=== PATIENT | female | born 1955 | race Caucasian/White ===

== ENCOUNTER → 2018-02-03 | Outpatient (CLI) | payer BC, OTHER ==
[~2018-02-03] MED LIST: ATOR20TA9 PO; MELO7.5T31 PO; METH479P PO
[2018-02-03 15:00] LABS: BASOPHILS # (AUTO) 0.02 x10^3/uL (0-0.1); BASOPHILS % (AUTO) 0 % (0-1); EOSINOPHILS # (AUTO) 0.23 x10^3/uL (0-0.4); EOSINOPHILS % (AUTO) 3 % (1-7); LYMPHOCYTES % (AUTO) 22 % (22-44); MD NO; MEAN CORPUSCULAR HEMOGLOBIN 30.8 pg (27.0-34.8); MEAN CORPUSCULAR HGB CONC 34.1 g/dL (32.4-35.8); MEAN CORPUSCULAR VOLUME 90.4 fL (80-100); MEAN PLATELET VOLUME 7.5 fL (7.4-10.4); MONOCYTES # (AUTO) 0.47 x10^3/uL (0.2-0.8); MONOCYTES % (AUTO) 7 % (2-9); NEUTROPHILS # (AUTO) 4.85 x10^3/uL (1.8-6.8); NEUTROPHILS % (AUTO) 68 % (42-75); PLATELET COUNT 247 x10^3/uL (130-400); RED BLOOD COUNT 5.05 x10^6/uL (3.82-5.3); RED CELL DISTRIBUTION WIDTH 14.3 % (9.6-15.2)
[2018-02-03 15:03] LABS: MICROSCOPIC NOT IND
[2018-02-03 15:11] LABS: ANION GAP 6 mmol/L (5-15); CALCIUM 8.9 mg/dL (8.5-10.1); CHLORIDE 110 mmol/L (98-107); CREATININE 0.96 mg/dL (0.55-1.02)
[2018-02-03 15:16] LABS: CULTURE INDICATED? NO
== END | disposition home or self-care (01) ==
LOC: STAR 13:54
PROVIDERS: ATTEND Orthopaedic Surgery Adult Reconstructive Orthopaedic Surgery
DX: Z01.818 Encounter for other preprocedural examination (principal); M17.12 Unilateral primary osteoarthritis, left knee
CPT/HCPCS: 36415; 80048; 81003; 85025; 87081; 87147; 93005

== ENCOUNTER 2018-02-16 05:43 | Inpatient (IN) | payer BC ==
[~2018-02-16] VITALS: Ht 160 cm; Wt 74.4 kg
[2018-02-16] MEDS ORDERED: LACTATED RINGERS 1,000 ML IV SCH (06:06)
[2018-02-16] MEDS ORDERED: NEOSPORIN OINT, 15GM ONE (06:08)
[2018-02-16] MEDS ORDERED: TRANEXAMIC ACID 100 MG/ML, 10ML ONE ×2 (06:08→07:52)
[2018-02-16] MEDS ORDERED: BUPIVACAINE/PF 0.5% ONE (06:08)
[2018-02-16] MEDS ORDERED: ALBUTEROL/IPRATROPIUM 2.5MG/0.5MG, 3 ML NPPB PRN (06:30)
[2018-02-16] MEDS ORDERED: DIAZEPAM 5 MG/ML, 2ML IVPush PRN (06:30)
[2018-02-16] MEDS ORDERED: SCOPOLAMINE PATCH, 1.5MG PATCH.TD72 TD ONE (06:30)
[2018-02-16] MEDS ORDERED: PROMETHAZINE 25 MG/ML, 1ML IV PRN (06:30)
[2018-02-16] MEDS ORDERED: ONDANSETRON ODT 8 MG PO ONE (06:30)
[2018-02-16] MEDS ORDERED: DIPHENHYDRAMINE 50 MG/ML, 1ML IVPush PRN (06:30)
[2018-02-16] MEDS ORDERED: SCOPOLAMINE PATCH, 1.5MG PATCH.TD72 TD PRN (06:30)
[2018-02-16] MEDS ORDERED: EPHEDRINE 50 MG/ML, 1ML IM PRN (06:30)
[2018-02-16] MEDS ORDERED: VANCOMYCIN PER PHARMACY MC PRN (06:30)
[2018-02-16] MEDS ORDERED: OxyconTIN ER 20 MG TAB.ER PO ONE (06:30)
[2018-02-16] MEDS ORDERED: GABAPENTIN 300 MG CAPSULE PO ONE (06:30)
[2018-02-16] MEDS ORDERED: ACETAMINOPHEN 500 MG TABLET PO ONE (06:30)
[2018-02-16] MEDS ORDERED: VANCOMYCIN 1,100 MG in SODIUM CHLORIDE 0.9% 250 ML IV ONE (06:30)
[2018-02-16] MEDS ORDERED: HYDROmorphone 1 MG/ML, 1ML IV PRN (06:30)
[2018-02-16] MEDS ORDERED: PROMETHAZINE 25 MG/ML, 1ML IM PRN ×2 (06:30→11:30)
[2018-02-16] MEDS ORDERED: MIDAZOLAM 1 MG/ML, 2ML IV PRN (06:30)
[2018-02-16] MEDS ORDERED: hydrALAzine 20 MG/ML, 1ML IV PRN (06:30)
[2018-02-16] MEDS ORDERED: MEPERIDINE/PF 25MG/0.5ML IVPush PRN (06:30)
[2018-02-16] MEDS ORDERED: FENTANYL PF 100 MCG/2ML IV PRN (06:30)
[2018-02-16] MEDS ORDERED: OXYcodone 5 MG/5 ML ORAL.SOL UDC PO PRN (06:30)
[2018-02-16] MEDS ORDERED: LABETALOL 5MG/ML, 20ML IV PRN (06:30)
[2018-02-16] MEDS ORDERED: MIDAZOLAM 1 MG/ML, 2ML ONE (06:34)
[2018-02-16] MEDS ORDERED: FENTANYL PF 250 MCG/5ML ONE (06:35)
[2018-02-16] MEDS ORDERED: OxyconTIN ER 20 MG TAB.ER ONE (06:39)
[2018-02-16] MEDS ORDERED: ACETAMINOPHEN 500 MG TABLET ONE (06:40)
[2018-02-16] MEDS ORDERED: GABAPENTIN 300 MG CAPSULE ONE (06:40)
[2018-02-16] MEDS ORDERED: ONDANSETRON ODT 8 MG ONE (06:40)
[2018-02-16] MEDS ORDERED: PROPOFOL 50 ML ONE (07:05)
[2018-02-16] MEDS ORDERED: PROPOFOL 10 MG/ML, 20ML ONE (07:23)
[2018-02-16] MEDS ORDERED: BUPIVACAINE/PF 0.25% ONE (07:23)
[2018-02-16] MEDS ORDERED: DEXAMETHASONE 4 MG/ML, 1ML ONE (07:23)
[2018-02-16] MEDS ORDERED: ONDANSETRON 2MG/ML, 2ML ONE (07:23)
[2018-02-16] MEDS ORDERED: CEFAZOLIN 1,000 MG ONE (07:23)
[2018-02-16] MEDS ORDERED: MEPERIDINE/PF 25MG/0.5ML ONE (09:04)
[2018-02-16] MEDS ORDERED: FENTANYL PF 100 MCG/2ML ONE (09:04)
[2018-02-16] MEDS ORDERED: OXYcodone 5 MG/5 ML ORAL.SOL UDC ONE (09:05)
[2018-02-16 10:25] VITALS: BP 114/71
[2018-02-16] MEDS ORDERED: SCOPOLAMINE PATCH, 1.5MG PATCH.TD72 TD SCH (11:30)
[2018-02-16] MEDS ORDERED: OXYcodone IR 5MG TABLET PO PRN (11:30)
[2018-02-16] MEDS ORDERED: BISACODYL 10 MG SUPP PR PRN (11:30)
[2018-02-16] MEDS ORDERED: SENNA/DOCUSATE TABLET PO PRN (11:30)
[2018-02-16] MEDS ORDERED: DIAZEPAM 5 MG TABLET PO PRN (11:30)
[2018-02-16] MEDS ORDERED: ONDANSETRON ODT 4 MG PO PRN (11:30)
[2018-02-16] MEDS ORDERED: ONDANSETRON 2MG/ML, 2ML IVPush PRN (11:30)
[2018-02-16] MEDS ORDERED: ALUMINUM/MAG/SIMETHICONE 30 ML UDC PO PRN (11:30)
[2018-02-16] MEDS ORDERED: ACETAMINOPHEN 325 MG TABLET PO PRN (11:30)
[2018-02-16] MEDS ORDERED: HYDROcodone/APAP 5/325 TABLET PO PRN (11:30)
[2018-02-16] MEDS ORDERED: MAGNESIUM HYDROXIDE 8%, 30ML UDC PO PRN (11:30)
[2018-02-16] MEDS ORDERED: morphine SULFATE 10 MG/ML, 1ML IV PRN (11:30)
[2018-02-16] MEDS ORDERED: DIPHENHYDRAMINE 25 MG CAPSULE PO PRN (11:30)
[2018-02-16] MEDS ORDERED: PROMETHAZINE 25 MG SUPP PR PRN (11:30)
[2018-02-16 12:58] VITALS: BP 111/69
[2018-02-16 12:59] VITALS: BP 120/74
[2018-02-16] MEDS: SODIUM CHLORIDE 0.9% 1,000 ML IV SCH ×2 (13:05→23:00)
[2018-02-16] MEDS: CEFAZOLIN PMX 2GM/50ML 50 ML IVPB SCH ×2 (15:13→23:04)
[2018-02-16] MEDS ORDERED: ONDANSETRON 4 MG TABLET ONE (15:14)
[2018-02-16] MEDS: DOCUSATE 100 MG CAPSULE PO SCH (20:17)
[2018-02-16 20:27] VITALS: BP 120/75
[2018-02-16] MEDS ORDERED: ATORVASTATIN 20 MG TABLET PO SCH (21:00)
[2018-02-17 00:04] VITALS: BP 123/74
[2018-02-17] MEDS ORDERED: DEXAMETHASONE 10 MG in SODIUM CHLORIDE 0.9% 50 ML IV ONE (06:00)
[2018-02-17] MEDS ORDERED: ASPIRIN 325 MG TABLET EC PO SCH (06:00)
[2018-02-17] MEDS ORDERED: APAP/CODEINE 300/30MG TABLET PO PRN (07:00)
[2018-02-17] MEDS: SODIUM CHLORIDE 0.9% 1,000 ML IV SCH (07:13)
[2018-02-17] MEDS: DOCUSATE 100 MG CAPSULE PO SCH (07:13)
[2018-02-17 07:17] VITALS: BP 119/82
[2018-02-17] MEDS ORDERED: MULTIVITAMINS/MINERALS TABLET PO SCH (09:00)
[2018-02-17 10:46] VITALS: BP 132/81
[2018-02-17] MEDS ORDERED: ACET1TAB64 PO (11:25)
[2018-02-17] MEDS ORDERED: KETOROLAC 30 MG/1 ML IV SCH (11:30)
[2018-02-17] MEDS ORDERED: ASPI-650 PO (11:34)
[2018-02-17] MEDS ORDERED: TRAM50TA2 PO (11:35)
== END 2018-02-17 11:50 | disposition home or self-care (01) | DRG 470 ==
LOC: OUT 05:43 → EDSTATUS 07:00 → MERGE 07:00 → 4NOR 10:10 → OUT 10:17 → 4NOR 10:18 → DCLOUNGE 02-17 11:20
PROVIDERS: ADMIT Orthopaedic Surgery Adult Reconstructive Orthopaedic Surgery; ATTEND Orthopaedic Surgery Adult Reconstructive Orthopaedic Surgery
PROC: 0SRD069 Replacement of Left Knee Joint with Oxidized Zirconium on Polyethylene Synthetic Substitute, Cemented, Open Approach (ICD-10-PCS; principal; 2018-02-16 07:00)
DX: M17.12 Unilateral primary osteoarthritis, left knee (principal); E78.5 Hyperlipidemia, unspecified; Z79.899 Other long term (current) drug therapy; K21.9 Gastro-esophageal reflux disease without esophagitis
CPT/HCPCS: 36415; 85014; 85018; C1713; J0690; J1100; J2175; J2250; J2405; J2704; J3010; J3370; J3490; Q0162; C1776; J7030; J7050; J7120